=== PATIENT | male | born 1995 | race Caucasian/White ===

== ENCOUNTER → 2023-05-17 11:32 | Outpatient (CLI) | payer BC, SELFPAY ==
[2023-05-17 11:40] LABS: Influenza A, PCR Not Detected (NotDetected); Influenza B, PCR Not Detected (NotDetected)
[2023-05-17 13:02] LABS: Coronavirus 19, PCR Detected (NotDetected)
== END ==
PROVIDERS: PCP Family Medicine; Visit Provider Family Medicine
DX: U07.1 COVID-19 (principal); Z20.822 Contact with and (suspected) exposure to COVID-19
CPT/HCPCS: 87636